=== PATIENT | male | born 1955 | race Caucasian/White ===

== ENCOUNTER → 2023-10-05 11:59 | Outpatient (CLI) | payer MEDICARE, SELFPAY ==
[2023-10-09 06:36] LABS: PSA Free % 22.4 % (.); PSA, Total 11.1 ng/mL (0.0-4.0)
== END ==
PROVIDERS: Referring Provider Urology; Visit Provider Urology
DX: R97.20 Elevated prostate specific antigen [PSA] (principal)
CPT/HCPCS: 36415; 84153; 84154

== ENCOUNTER 2024-06-03 09:42 | Day surgery (SDC) | payer MEDICARE, SELFPAY ==
[2024-06-03 10:05] VITALS: BP 150/87; PULSE 82; RESP 20; TEMP 36.9; O2SAT 97
--- NOTE | 2024-06-03 10:06 | PM.HP.1 ---
History of Present Illness History of Present Illness Date Patient Seen: 06/03/24 Time Patient Seen: 10:06 Chief complaint: Screening Colonoscopy Narrative: 68-year-old man here for screening colonoscopy. Last colonoscopy 2007. No family history of colon cancer. No abdominal concerns today. Meds Home Medications and Allergies Home Medications Medication Instructions Recorded Confirmed Type sodium,potassium,mag sulfates 17.5 See Rx Instructions PO .COMPLEX 05/19/24 Rx gram-3.13 gram-1.6 gram oral soln #354 mL (Suprep Bowel Prep Kit) dextroamphetamine-amphetamine ER 1 cap PO DAILY 06/03/24 06/03/24 History 30 mg 24hr capsule,extend release lisinopril 5 mg tablet 5 mg PO DAILY 06/03/24 06/03/24 History meloxicam 7.5 mg tablet 7.5 mg PO DAILY 06/03/24 06/03/24 History rosuvastatin 10 mg tablet 10 mg PO ONCE PM 06/03/24 06/03/24 History Allergies Allergy/AdvReac Type Severity Reaction Status Date / Time No Known Drug Allergies Allergy Verified 06/03/24 09:57 Exam Narrative Exam Narrative: General adult man alert oriented no acute distress Chest nonlabored respiration Extremities warm well perfused Assessment & Plan Assessment & Plan narrative: The patient requires colorectal screening and colonoscopy is recommended. Technical details were discussed. Risks, benefits, alternatives explained. Risks including but not limited to myocardial infarction, aspiration, bleeding, pain, missed lesion, incomplete examination, need for further radiographic studies, intestinal injury, and need for major abdominal surgery were discussed. All questions were answered to their satisfaction, and they are in agreement with this plan. Time-Based Coding :: [TOTAL MINUTES] spent with patient and on the chart (including review of chart, obtaining history, exam, reviewing outside data, placing orders, documenting exam and treatment plan, and counseling patient) on [DATE].
--- NOTE | 2024-06-03 10:12 | P.OP.COLON_ITS ---
Operative Date/Time/Diagnoses Date of procedure: 06/03/24 Time of procedure: 10:13 Pre-op diagnosis: Colorectal screening Procedure & Clinicians Study performed: Screening colonoscopy Same procedure as scheduled: Yes Indications: Screening Surgeon: Varinder Ceja Procedure Notes Procedure in detail: The history and physical was performed/updated and the patient is ASA class is 2. The procedure was discussed in detail with the patient. Potential risks complications including infection, bleeding, missed diagnosis, perforation, need for surgery, and were explained. Their questions were answered and informed consent was obtained. Patient was brought to the procedure room and placed standard monitoring equipment. The patient's vital signs were monitored continuously throughout the entire procedure. Prior to starting time-out was performed. The patient was placed in the left lateral recumbent position. Procedural sedation was administered by anesthesia. Examination began with a thorough inspection of the perianal area there was no evidence of fissures, fistulae, external hemorrhoids or cutaneous malignancy. The colonoscopy scope was then placed into the anal canal and was advanced to the cecum, which was identified by the ileocecal valve, the appendiceal orifice and the confluence of the taenia. The scope was then slowly withdrawn examining colon thoroughly in all directions, irrigating it of any residual stool. The scope was retroflexed within the rectum The patient tolerated the procedure well. They will be discharged once criteria are met. The prep was of good/excellent quality. The withdrawl time was 7 minutes. FINDINGS * Unremarkable colonoscopy. Normal healthy colonic mucosa without mass or polyps. Impression: Normal colonoscopy. Post-procedure Plan for aftercare: No need for further colonoscopy unless symptomatic Disposition: same day surgery
[2024-06-03] MEDS: LACTATED RINGERS 1,000 ML 42 ML IV (10:16)
[2024-06-03 10:39] VITALS: BP 108/65; PULSE 81; RESP 27; TEMP 36.4; O2SAT 93
[2024-06-03 10:44] VITALS: BP 125/73; PULSE 80; RESP 23; O2SAT 95
[2024-06-03 10:48] VITALS: PULSE 75; RESP 15; TEMP 36.7; O2SAT 97
[2024-06-03 10:49] VITALS: BP 121/75; PULSE 84; RESP 19; O2SAT 97
== END 2024-06-03 11:02 | disposition home or self-care (01) ==
PROVIDERS: Referring Provider Surgery; Visit Provider Surgery
PROC: 0DJD8ZZ Inspection of Lower Intestinal Tract, Via Natural or Artificial Opening Endoscopic (ICD-10-PCS; CPT 45378; principal; 2024-06-03 10:45)
DX: Z12.11 Encounter for screening for malignant neoplasm of colon (principal)
CPT/HCPCS: G0121